=== PATIENT | female | born 1945 | race Caucasian/White ===

== ENCOUNTER 2022-06-21 03:37 | Emergency (ER) | payer MEDICARE, SELFPAY ==
[2022-06-21] VITALS (21 sets, daily range): BP systolic 81–111; BP diastolic 58–88; PULSE 83–135; RESP 12–50; TEMP 36.2–36.4; O2SAT 83–100; BMI 29.7
--- NOTE | 2022-06-21 03:51 | EX.ED.DYSGE1 ---
HPI History of Present Illness Chief Complaint: Shortness of Breath Narrative Narrative: The patient Chest pain history. Per EMS patient was sent in for respiratory failure. Per EMS patient was going to be evaluated by hospice at 8 AM. She is DNR-CCA. Per nursing at notes the patient has not been eating well. notes decreased alertness, fatigue ?aspiration. Spoke with daughter today about possibly enrolling in hospice. Per RN the patient's daughter refused hospice. Notes RR in the 40s with tachycardia and trouble breathing that began this evening and has been constant, severe without alleviating factors. Gave duo-neb without relief. Notes patient is DNR-CCA. No vomiting, no fever. PFSH PFSH Medical History COPD (chronic obstructive pulmonary disease) Allergy/AdvReac Type Severity Reaction Status Date / Time codeine Allergy Anaphylaxis Verified 06/21/22 04:31 meperidine [From Demerol] Allergy Anaphylaxis Verified 06/21/22 04:31 Family History Other COPD (chronic obstructive pulmonary disease) Heart disease Surgical History History of hip surgery Hx of appendectomy Social History Smoking Status: Never smoker ROS ROS ED ROS Narrative Unable to obtain review of systems secondary to the acuity of the patient's condition. Review of Systems ROS Unobtainable: due to mental status EXAM Physical Exam Narrative Exam Narrative: Nursing triage notes reviewed, Vital signs reviewed Constitutional: Warm to touch, appears chronically ill, cachectic HENT: MMM Eyes: Pupils equal round and reactive to light, Extraocular muscles intact Neck: No stridor, no JVD, full neck ROM Lungs: Increased work of breathing, right upper lobe crackles Heart: Regular rate and rhythm, No murmurs, No rubs and No gallops, 2+ distal pulses (radial, femoral, posterior tibial) in all extremities Abdomen: Soft, there is no tenderness, rigidity, rebound or guarding, no obvious peritoneal signs, no palpable pulsatile abdominal masses, no auscultated abdominal bruit : No CVAT Extremities: No edema Neuro: The patient was not oriented to person place or time 0. Patient moves all 4 extremities appear to have sensation all 4 extremities Skin: No rash or lesions noted Const Vital Signs: 06/21/22 03:37 06/21/22 03:43 06/21/22 04:00 Temperature 97.6 F L Temperature Source Temporal Pulse Rate 135 H 131 H Respiratory Rate 29 H 50 H Respiratory Effort Short of Breath Accessory Muscle Use Respiratory Depth Shallow Respiratory Pattern Tachypnea Tachypnea Blood Pressure 100/58 L Blood Pressure Mean 72 Pulse Ox 83 93 Oxygen Delivery Method Nasal Cannula Nasal Cannula Oxygen Flow Rate (L/min) 4 Fraction of Inspired Oxygen (FIO2) 100 06/21/22 06:31 06/21/22 07:07 Temperature Temperature Source Pulse Rate 108 H 103 H Respiratory Rate 35 H 30 H Respiratory Effort Respiratory Depth Respiratory Pattern Blood Pressure 81/68 L Blood Pressure Mean 72 Pulse Ox 98 100 Oxygen Delivery Method Bi-pap Oxygen Flow Rate (L/min) 100 Fraction of Inspired Oxygen (FIO2) 100 MDM MDM MDM Narrative Medical decision making narrative: 77-year-old female here with respiratory distress. Patient's not provide reliable history. She was initially tachycardic, hypotensive, tachypneic on 6 L nasal cannula satting 83%. Patient was placed on BiPAP immediately 06/25. A broad lab and imaging evaluation was obtained including a chest x-ray, EKG, labs including VBG, lactate blood cultures. X-ray showed evidence of focal pneumonia by my read. COVID test was positive. Given the patient's signs of septic shock I did give the patient a fluid bolus, gave broad-spectrum antibiotics and a 30 cc/kg bolus. Given the patient's COVID-19 test being positive, hypoxia concern for severe COVID I did give Decadron. Patient's hypoxia improved on BiPAP however she was still tachypneic. I did have a goals of care discussion with the patient's daughter who states that she is not sure about placing her mother on hospice at this time states that her mother's wishes would be DNR CCA, DNI. Discussed with inpatient physician (Dr. Palmer) who accepted the patient's case to the ICU. Lab Data Lab results narrative: Lactate elevated consistent with endorgan hypoperfusion concerning for sepsis, repeat lactate pending CBC with leukocytosis concerning for systemic inflammation, no anemia or thrombocytopenia BNP elevated consistent with volume overload Troponin elevated concern for myocardial ischemia likely a type II demand ischemia given hypoxia BMP with severe hypernatremia, acute kidney injury. No anion gap VBG without significant CO2 retention or respiratory acidosis Blood cultures pending Labs: Laboratory Results - last 24 hr 06/21/22 06/21/22 06/21/22 04:04 04:20 04:20 WBC 14.0 H RBC 4.84 Hgb 14.2 Hct 47.2 H MCV 97.5 MCH 29.3 MCHC 30.1 L RDW Std Deviation 55.2 H RDW Coeff of Victor Manuel 15.4 H Plt Count 232 MPV 13.7 H Immature Gran % (Auto) 1.100 H Neut % (Auto) 90.4 H Lymph % (Auto) 4.4 L [place] % (Auto) 3.6 Eos % (Auto) 0.2 Baso % (Auto) 0.3 Absolute Neuts (auto) 12.7 H Absolute Lymphs (auto) 0.62 L Nucleated RBC % 0.4 Anisocytosis 1+ Sodium Cancelled Potassium Cancelled Chloride Cancelled Carbon Dioxide Cancelled Anion Gap Cancelled BUN Cancelled Creatinine Cancelled Estim Creat Clear Calc Cancelled Est GFR (MDRD) Af Amer Cancelled Est GFR (MDRD) Non-Af Cancelled BUN/Creatinine Ratio Cancelled Glucose Cancelled Lactic Acid 5.8 H* Calcium Cancelled Total Bilirubin Direct Bilirubin AST ALT Alkaline Phosphatase Troponin I High Sens Cancelled B-Natriuretic Peptide Total Protein Albumin Globulin 06/21/22 06/21/22 04:20 05:39 WBC RBC Hgb Hct MCV MCH MCHC RDW Std Deviation RDW Coeff of Victor Manuel Plt Count MPV Immature Gran % (Auto) Neut % (Auto) Lymph % (Auto) [place] % (Auto) Eos % (Auto) Baso % (Auto) Absolute Neuts (auto) Absolute Lymphs (auto) Nucleated RBC % Anisocytosis Sodium 163 H* Potassium 4.4 Chloride 128 H* Carbon Dioxide 24.0 Anion Gap 11 BUN 87 H Creatinine 3.02 H Estim Creat Clear Calc 12.50 Est GFR (MDRD) Af Amer 19 L Est GFR (MDRD) Non-Af 16 L BUN/Creatinine Ratio 28.8 H Glucose 189 H Lactic Acid Calcium 9.3 Total Bilirubin 0.60 Direct Bilirubin 0.26 AST 17 ALT 81 H Alkaline Phosphatase 107 Troponin I High Sens 103 H B-Natriuretic Peptide 189.6 H Total Protein 6.8 Albumin 1.9 L Globulin 4.9 H ABG Data ABG results: ABG 06/21/22 07:13 Specimen Type KATYA VBG pH 7.31 L VBG pO2 82 H VBG HCO3 24 VBG Total CO2 25 VBG O2 Sat (Calc) 95 H VBG Base Excess -3 L POC Mix VBG pCO2 Pt Tmp 47.1 Clinical Comments BiPAP Radiography Diagnostic Testing: Clinical Impression(s) from Imaging Studies Chest X-Ray 06/21/22 03:53 IMPRESSION: COPD with bibasilar pulmonary airspace disease and equivocal small right pleural effusion. Electronically Signed: Servando Mtz MD at 5:01 EST , Chest x-ray interpreted by myself shows right-sided infiltrates concerning for focal pneumonia this is more consistent with my physical exam report of aspiration. Did give broad-spectrum antibiotics. EKG Initial EKG: Comments: EKG with sinus tachycardia, normal axis, normal intervals, no obvious STEMI T waves in V3 and V4 look peaked otherwise no peaked T waves or signs of hyperkalemia we will obtain BMP Discharge Plan Dx/Rx/DC Orders Clinical Impression: COVID-19, Hypoxia, Acute respiratory failure with hypoxia, Acute hypernatremia, Acute kidney injury Disposition Disposition: Acute Care [facility]
--- NOTE | 2022-06-21 03:53 | RAD_ITS ---
INDICATION: hypoxia EXAMINATION/TECHNIQUE: X-RAY - XR Chest 1 View COMPARISON: None received. FINDINGS: LINES/DEVICES: None. LUNGS: Hyperexpanded and emphysematous lungs. Coarsened interstitial opacities within bilateral mid to lower lungs. Superimposed bibasilar airspace opacities. Symmetric bilateral nipple shadows. Possible small right pleural effusion versus chronic pleural blunting. No pneumothorax detected. MEDIASTINUM AND CARDIOVASCULAR STRUCTURES: Heart size within normal limits. Mediastinal contours unremarkable. BONES AND SOFT TISSUES: Degenerative changes and mild scoliotic curvature along spine. Cholecystectomy clips noted. RAD/Chest 1 View (Portable) IMPRESSION: COPD with bibasilar pulmonary airspace disease and equivocal small right pleural effusion. Electronically Signed: Servando Mtz MD at 5:01 EST ,
--- NOTE | 2022-06-21 03:54 | EKG12_ITS ---
Test Reason : DYSRHYTHMIA Blood Pressure : / mmHG Vent. Rate : 132 BPM Atrial Rate : 132 BPM P-R Int : 112 ms QRS Dur : 060 ms QT Int : 288 ms P-R-T Axes : 042 067 038 degrees QTc Int : 426 ms Sinus tachycardia with occasional Premature ventricular complexes Otherwise normal ECG Confirmed by ANGELITA CHESTER, GIULIA ([id number]), purchase request editor NOEL DIAZ ([id number]) on 06/25/2022 11:46:11 AM Referred By: CARA Confirmed By:GIULIA GOLDSTEIN MD
[2022-06-21 04:33] LABS: Absolute Lymphocyte Count 0.62 X10^3/uL (0.83-4.51); Absolute Neutrophil Count 12.7 X10^3/uL (2.0-7.7); Basophil# 0.04 X10^3/uL; Basophil% 0.3 % (0-1); Eosinophil# 0.03 X10^3/uL; Eosinophils% 0.2 % (0-5); Hematocrit 47.2 % (37-47); Hemoglobin 14.2 g/dL (12.0-15.0); Lymphocyte # 0.62 X10^3/ul (0.83-4.51); Lymphocyte % 4.4 % (19-41); Mean Corp Hgb Conc 30.1 g/dL (32-36); Mean Corpuscular Hgb 29.3 pg (27.0-32.0); Mean Corpuscular Volume 97.5 fL (81-99); Mean Platelet Vol. 13.7 fl (6.2-12.0); Monocyte# 0.51 X10^3/uL; Monocyte% 3.6 % (0-10); NRBC Flagged by Analyzer 0.4 % (0-5); Neutrophil # 12.65 X10^3/uL (2.7-7.7); Neutrophil % 90.4 % (47-70); POSITIVE MORPHOLOGY YES; Platelet Count 232 K/mm3 (150-450); RBC Distribution Width CV 15.4 % (11.6-14.6); RBC Distribution Width SD 55.2 fl (35.1-43.9); Red Blood Count 4.84 M/mm3 (4.2-5.4)
--- NOTE | 2022-06-21 04:33 | NURSING ---
[facility] WAS CALLED THEY WERE PAGING OUT A NURSE TO CALL BACK.
[2022-06-21 04:36] LABS: Differential Indicated SCAN CRITERIA MET
[2022-06-21 04:44] LABS: Lactic Acid 5.8 mmol/L (0.4-1.9)
[2022-06-21 05:11] LABS: BNP,B-Type NATRIURETIC PEPTIDE 189.6 pg/mL (0-100)
[2022-06-21 05:12] LABS: Anisocytosis 1+
[2022-06-21] MEDS: dexAMETHasone 10 MG/ML Vial 6 MG IV (05:52)
[2022-06-21] MEDS: 0.9% Normal Saline 1,000 ML 999 ML IV ×2 (05:52→07:39)
--- NOTE | 2022-06-21 05:55 | HP.PCM.HOS_ITS ---
HPI - General General Date of Admission: 06/21/22 Date of Service: 06/21/22 Chief Complaint: lethargy HPI Narrative OSEAS RENDON, is a 77 F with a significant history of COPD; and dementia who presents to the emergency department with lethargy. Reportedly patient had RSV and was admitted at [facility] about 2 weeks ago. Thereafter she was discharged to [facility] for rehabilitation. Family report that ever since patient got to the senior care she has gone downhill. Per family a day before presentation they were notified that patient has shortness of breath and lethargy. Also reportedly she had aspirated. History was obtained from family who was at the bedside. Patient is stuporous and cannot contribute to history. [facility] Medical History COPD (chronic obstructive pulmonary disease) Allergy/AdvReac Type Severity Reaction Status Date / Time codeine Allergy Anaphylaxis Verified 06/21/22 04:31 meperidine [From Demerol] Allergy Anaphylaxis Verified 06/21/22 04:31 Family History Other COPD (chronic obstructive pulmonary disease) Heart disease Surgical History History of hip surgery Hx of appendectomy Social History Smoking Status: Never smoker ROS Review of Systems ROS Unobtainable: other Details: Pertinent positives and pertinent negatives that could be provided by patient's family is as noted in HPI. All other systems were reviewed patient's family did not know or they were negative. Vital Signs Vital Signs Vital Signs: 06/21/22 03:37 06/21/22 03:43 06/21/22 04:00 Temperature 97.6 F L Temperature Source Temporal Pulse Rate 135 H 131 H Respiratory Rate 29 H 50 H Respiratory Effort Short of Breath Accessory Muscle Use Respiratory Depth Shallow Respiratory Pattern Tachypnea Tachypnea Blood Pressure 100/58 L Blood Pressure Mean 72 Pulse Ox 83 93 Oxygen Delivery Method Nasal Cannula Nasal Cannula Oxygen Flow Rate (L/min) 4 Fraction of Inspired Oxygen (FIO2) 100 Weight Weight: 76.3 kg Body Mass Index (BMI) 29.7 Physical Exam Narrative Physical exam: General: Sickly looking elderly female, on BiPAP and stuporous. Head: Normocephalic, atraumatic, Eyes: Open eyes and stares. Neck: Nontender, no thyromegaly CVS: Tachypnea. S1-S2 present. No murmur, gallop or rub. Respiratory : Tachypnea; diminished respiration, chest wall nontender, Abdomen: Soft, nontender, nondistended, normal bowel sounds, no masses : Deferred Back: Nontender, no CVA tenderness Extremities: Nontender; no edema Skin: Normal color, no trauma Neuro: Stuporous; does not follow commands Psychiatry: Stuporous. Results Lab / Micro Data Result Diagrams: 06/21/22 04:20 06/21/22 05:39 Labs: Laboratory Results - last 24 hr 06/21/22 04:04: Lactic Acid 5.8 H* 06/21/22 04:20: WBC 14.0 H, RBC 4.84, Hgb 14.2, Hct 47.2 H, MCV 97.5, MCH 29.3, MCHC 30.1 L, RDW Std Deviation 55.2 H, RDW Coeff of Victor Manuel 15.4 H, Plt Count 232, MPV 13.7 H, Immature Gran % (Auto) 1.100 H, Neut % (Auto) 90.4 H, Lymph % (Auto) 4.4 L, [place] % (Auto) 3.6, Eos % (Auto) 0.2, Baso % (Auto) 0.3, Absolute Neuts (auto) 12.7 H, Absolute Lymphs (auto) 0.62 L, Nucleated RBC % 0.4, Anisocytosis 1+ 06/21/22 04:20: Sodium Cancelled, Potassium Cancelled, Chloride Cancelled, Carbon Dioxide Cancelled, Anion Gap Cancelled, BUN Cancelled, Creatinine Cancelled, Estim Creat Clear Calc Cancelled, Est GFR (MDRD) Af Amer Cancelled, Est GFR (MDRD) Non-Af Cancelled, BUN/Creatinine Ratio Cancelled, Glucose Cancelled, Calcium Cancelled, Troponin I High Sens Cancelled 06/21/22 04:20: B-Natriuretic Peptide 189.6 H Micro: Microbiology 06/21/22 04:05 Nasal Secretion SARS-CoV-2 & FLU Antigen (Rapid) - Final SARS-CoV-2 (COVID 19) Radiology Impression Chest X-Ray 06/21/22 03:53 IMPRESSION: COPD with bibasilar pulmonary airspace disease and equivocal small right pleural effusion. Electronically Signed: Servando Mtz MD at 5:01 EST , Assessment & Plan Assessment/Plan (1) Acute respiratory failure with hypoxia: (2) COVID-19: (3) Septic shock: (4) Acute hypernatremia: PLAN: Plan Acute hypoxemic respiratory failure secondary to SARS- COV 2/aspiration pneumonia/septic shock The patient presented with sepsis due to (pneumonia, likely aspiration) with acute sepsis related organ dysfunction as evidenced by (requiring BiPAP, lactic acidosis). SIRS criteria: Respiratory rate more than 20 Heart rate more than 90 WBC of 14. Trend CBC. Lactic acid of 5.8, trend. Decadron IV ordered. Patient is not a candidate of remdesivir as creatinine clearance is less than 30. 30ml/kg bolus normal saline ordered. CXR was visualized and independently interpreted Rapid COVID is positive. Blood culture ordered emergency department. Vancomycin and Zosyn ordered. BiPAP started at the emergency department and continued. Admit to intensive care unit and consult mig tig welder. Acute hypernatremia and hyperchloremia Sodium of 163; chloride of 128. Like secondary to dehydration. Normal saline bolus and continuous infusion ordered. Repeat BMP at 10 AM. KAREN Creatinine of 3.02. BUN is 87. BUN over creatinine is 28.8. Review of record showed a his creatinine on 06/14/2020 was 0.80. Likely prerenal. IV hydration as above. Avoid nephrotoxic's. DVT Prophylaxis: Lovenox ordered. Discussed with daughter Jessika Lee who states that she is the POA ([phone]). Per daughter patient is a DNR CCA with no intubation. Pressors through peripheral lines are okay. Charges/Coding Visit Charges Inpatient E&M: 25316 Init Hosp L3
[2022-06-21 06:23] LABS: AST(SGOT) 17 U/L (15-37); Alanine Aminotransfer ALT/SGPT 81 U/L (13-56); Albumin, Serum 1.9 g/dL (3.2-5.0); Alkaline Phosphatase 107 U/L (45-117); Anion Gap 11 (5-15); BUN 87 mg/dL (7-18); BUN/Creat Ratio 28.8 RATIO (10-20); Bilirubin, Direct 0.26 mg/dL (0.00-0.30); Calcium,Total 9.3 mg/dL (8.5-10.1); Chloride 128 mmol/L (98-107); Creatinine, Serum 3.02 mg/dL (0.55-1.02); EST Glomerular Filtration Rate 16 mL/min (>60); Est Glom Filt Rate - Afr Amer 19 mL/min (>60); Globulin 4.9 g/dL (2.2-4.2); Glucose 189 mg/dL (74-106); Potassium 4.4 mmol/L (3.5-5.1); Protein, Total 6.8 g/dL (6.4-8.2); Sodium Level 163 mmol/L (136-145); Troponin-I HS (w/2H Reflex) 103 pg/mL (3.0-54.0)
[2022-06-21 07:20] LABS: Blood Gas Specimen Type VEN; Comment BiPAP; VBG BASE EXCESS -3 mmol/L (-1.0-3.5); VBG Bicarbonate 24 mmol/L (22-26); VBG PO2 82 mmHg (25-40); VBG SO2 95 % (50-70); VBG TCO2 25 mmol/L (23-33); VBG pCO2 47.1 mmHg (41-51); VBG pH 7.31 (7.32-7.42)
[2022-06-21 07:44] LABS: Reflex Troponin-HS? (from REC) Y
[2022-06-21 08:10] LABS: Reflex Lactate? Y
[2022-06-21 09:05] LABS: Troponin-I HS 84 pg/mL (3.0-54.0)
[2022-06-21 09:16] LABS: Lactic Acid 3.4 mmol/L (0.4-1.9)
--- NOTE | 2022-06-21 09:35 | ED.RN ---
talked with [facility] and gave all pt info to get the referral started
--- NOTE | 2022-06-21 11:05 | CM.ED ---
Addendum entered by Naya Torres 06/21/22 13:48: WENDY spoke to family. They had not heard from [facility]. Family inquired if they should call and WEDNY encouraged them to marcela [facility]. WENDY went back to check on family and the daughter, Kailey, said that the hospice has received all the medical records from patient's PCP office (where Kailey works) and there is a bed at [facility] in [place]. Family stated that they are waiting to sign the paperwork for admission of patient to [facility] and then [facility]. [facility] Addendum entered by Naya Torres 06/21/22 12:20: WENDY called Loren in intake at [facility]. She transferred me to Yue. Yue asked if the patient needed symptom management. WENDY reviewed and read the hospitalist note to patient and Yue voiced that she also had received the medical records. Yue said that the medical records have been entered so she will update the patient's family and see if they have a bed at [facility]osp[facility] and then call this magazine writer back. WENDY updated family, charge auditor and RN. Nayaameena MORGAN Original Note: WENDY was advised that family wants [facility]. WENDY spoke to Kailey, patient's daughter. Kailey stated that she wants [facility] which is on [facility] in [place]. WENDY googled [facility], which is part of [facility], and spoke to Manju. WENDY made referral. WENDY needed to fax demographic sheet, MD order and ED note. WENDY fax all requested information to [phone]. WENDY faxed all requested information for the referral to [facility]. Order was completed by MD Barlow. WENDY updated patient's daughter that [facility] will be calling her. WENDY updated RN and data collection technician. updated. WENDY called Gladys at [facility] and advised that patient has been referred to [facility] for IPU. WENDY will continue to update [facility]. WENDY remains available if additional needs arise. Naya MORGAN
[2022-06-21 14:43] LABS: Anion Gap 8 (5-15); BUN 81 mg/dL (7-18); BUN/Creat Ratio 29.9 RATIO (10-20); Calcium,Total 8.5 mg/dL (8.5-10.1); Chloride 137 mmol/L (98-107); Creatinine, Serum 2.71 mg/dL (0.55-1.02); EST Glomerular Filtration Rate 18 mL/min (>60); Est Glom Filt Rate - Afr Amer 22 mL/min (>60); Estimated Creatinine Clearance 13.92 ml/min; Glucose 171 mg/dL (74-106); Potassium 4.7 mmol/L (3.5-5.1); Sodium Level 164 mmol/L (136-145)
--- NOTE | 2022-06-21 15:38 | CM.ED ---
WENDY called [facility] on 2 additional times and left messages to call this securities underwriter. WENDY received call from Yue at [facility]. Yue said that their is a bed reserved for patient at the IPU at [facility]. Yue said she is working on transport and will call back with transport time. Yue has updated the family. WENDY called [facility] and updated staff that patient is going to IPU at [facility] in [place]. Plan: [place] at [facility] Naya MORGAN
--- NOTE | 2022-06-21 17:15 | ED.RN ---
PER HOSPICE, [facility] TO [facility]IGIBILITY CLERK PT AT 6PM. FAMILY NOTIFIED
--- NOTE | 2022-06-21 18:36 | CM.ED ---
Yue from [facility] left voice mail message advising that patient would be picked up by [facility] at 6pm. SW was unable to schedule transport due to patient having to use her transportation hospice benefits. WENDY advised patient discharged to IPU at [facility] which is part of [facility]. Naya MORGAN
== END 2022-06-21 18:28 | disposition hospice, inpatient (51) ==
PROVIDERS: Emergency Medicine; Hospitalist; Emergency Provider Internal Medicine; PCP Family Medicine; Visit Provider Internal Medicine
DX: U07.1 COVID-19 (principal); N17.9 Acute kidney failure, unspecified; R65.21 Severe sepsis with septic shock; J44.0 Chronic obstructive pulmonary disease with (acute) lower respiratory infection; J96.01 Acute respiratory failure with hypoxia; E87.20 Acidosis, unspecified; E87.0 Hyperosmolality and hypernatremia; R06.02 Shortness of breath
CPT/HCPCS: 36415; 71045; 80048; 80076; 82803; 83605; 83880; 84484; 85025; 87040; 87428; 93005; 94002; 96365; 96366; 96367; 96375; 99285; J7030; J7050; A4216